=== PATIENT | female | born 1955 | race Caucasian/White ===

== ENCOUNTER 2025-08-10 14:01 | Outpatient (CLI) | payer MEDICARE | END 2025-08-10 14:02 | disposition home or self-care (01) | LOC: CSHMAMMO 14:01 | PROVIDERS: ATTEND Family Medicine | DX: D05.11 Intraductal carcinoma in situ of right breast (principal); N63.15 Unspecified lump in the right breast, overlapping quadrants; N64.89 Other specified disorders of breast | CPT/HCPCS: 19083; 76642; 77065; A4648; G0279; 88305 ==

== ENCOUNTER 2025-09-06 10:36 | Outpatient (CLI) | payer MEDICARE | END 2025-09-06 10:37 | disposition home or self-care (01) | LOC: CSHULT 10:36 | PROVIDERS: ATTEND Internal Medicine Hematology & Oncology | DX: C50.411 Malignant neoplasm of upper-outer quadrant of right female breast (principal) | CPT/HCPCS: 76999 ==

== ENCOUNTER 2025-09-12 09:09 | Day surgery (SDC) | payer MEDICARE ==
[2025-09-08 15:11] VITALS: BMI 37.2
[2025-09-12] MEDS ORDERED: Bupivacaine/Epinephrine 0.25% 30 ML VIAL ONE (09:30)
[2025-09-12] MEDS ORDERED: Ondansetron PF 4 MG/2 ML Vial ONE (10:23)
[2025-09-12] MEDS ORDERED: Lidocaine 1% PF 5 ML VIAL ONE (10:23)
[2025-09-12] MEDS ORDERED: PROPOFOL 40 ML ONE (10:23)
[2025-09-12 10:26] LABS: #Basophils 0.06 10x3/uL (0.0-0.2); #Eosinophils 0.13 10x3/uL (0.0-0.5); #Monocytes 0.55 10x3/uL (0.0-1.1); #Neutrophils 3.23 10x3/uL (1.5-8.4); %Basophils 1.0 % (0.0-2.0); %Eosinophils 2.2 % (0.0-6.0); %Lymphocytes 32.8 % (18.0-47.0); %Monocytes 9.3 % (0.0-10.0); %Neutrophils 54.5 % (40.0-75.0); Hematocrit 45.4 % (34.9-44.5); Hemoglobin 14.2 g/dL (12.0-15.5); Mean Corpuscular Hemoglobin 28.7 pg (27.0-33.0); Mean Corpuscular Volume 91.7 fL (81.6-98.3); Platelet Count 256 10x3/uL (150-450); Red Blood Cell (RBC) Count 4.95 10x6/uL (3.90-5.03); White Blood Cell (WBC) Count 5.92 10x3/uL (3.5-10.5)
[2025-09-12 10:38] LABS: Anion Gap 13 mmol/L (10-20); BUN (Urea Nitrogen) 11 mg/dL (9.8-20.1); Calc. Creatinine Clearance 101 mL/min (70-130); Calcium 9.1 mg/dL (7.8-10.44); Carbon Dioxide 27 mmol/L (23-31); Chloride 106 mmol/L (98-107); Glucose 99 mg/dL (80-115); Potassium 4.0 mmol/L (3.5-5.1); Sodium 142 mmol/L (136-145)
[2025-09-12] MEDS ORDERED: HYDROcodone/Acetaminophen 5/325 mg Tablet ONE (12:33)
[2025-09-13] MEDS ORDERED: ROSUVASTATIN CALCIUM 5 MG PO SCH (09:00)
== END 2025-09-12 13:30 | disposition home or self-care (01) ==
LOC: CSHSDC 09:09
PROVIDERS: ATTEND Student in an Organized Health Care Education/Training Program
PROC: 0JH60WZ Insertion of Totally Implantable Vascular Access Device into Chest Subcutaneous Tissue and Fascia, Open Approach (ICD-10-PCS; principal; 2025-09-12)
DX: C50.911 Malignant neoplasm of unspecified site of right female breast (principal); H91.90 Unspecified hearing loss, unspecified ear; E66.9 Obesity, unspecified; Z68.38 Body mass index [BMI] 38.0-38.9, adult; Z96.651 Presence of right artificial knee joint; Z90.710 Acquired absence of both cervix and uterus; Z88.5 Allergy status to narcotic agent
CPT/HCPCS: 36561; 71045; 80048; 85025; C1788; J1100; J1642; J2405; J2704; J3010